=== PATIENT | female | born 1960 | race African-American/Black ===

== ENCOUNTER → 2025-01-12 | Outpatient (CLI) | payer MEDICARE, MEDICAID ==
[~2025-01-12] MED LIST: GADOTERATE MEGLUMINE 5 MMOL/10 ML VIAL IV ONE
== END | disposition home or self-care (01) ==
LOC: MRI 09:42
PROVIDERS: ATTEND Neurological Surgery
DX: C71.9 Malignant neoplasm of brain, unspecified (principal); D49.6 Neoplasm of unspecified behavior of brain; G93.89 Other specified disorders of brain
CPT/HCPCS: 70553; A9577